=== PATIENT | female | born 1975 | race Caucasian/White ===

== ENCOUNTER 2017-01-17 16:57 | Emergency (ER) | payer OTHER, MEDICAID ==
[~2017-01-17] VITALS: Ht 167.6 cm; Wt 56.7 kg
[~2017-01-17 16:57] MED LIST: ALBU1AER4 IN; CLIN1CAP3 PO; HYDR-531 PO; NAPR1TAB87 PO; ROPI0.252 PO; SUMAPOW3 XX
[2017-01-17 17:07] VITALS: BP 141/95
[2017-01-17 17:34] LABS: Basophils # (auto) 0 uL; Basophils % (auto) 0.6 % (0.0-2.0); Eosinophils # (auto) 0.4 uL; Hemoglobin 9.9 g/dL (12.2-16.2); Lymphocytes % (auto) 17.3 % (10.0-50.0); Monocytes # (auto) 0.7 uL
[2017-01-17 17:37] LABS: Eosinophils % (auto) 5.6 % (0.0-7.0); Lymphocytes # (auto) 1.3 uL; Monocytes % (auto) 9.6 % (0.0-12.0); Neutrophils % (auto) 66.9 % (37.0-80.0); White Blood Cell 7.5 10^3/uL (4.4-10.8)
[2017-01-17 17:38] LABS: Hematocrit 30.5 % (36.0-46.0); Mean Corpuscular Hemoglobin 26.6 pg (28.0-32.0); Mean Corpuscular Hgb Conc. 32.5 g/dL (32.0-36.0); Mean Corpuscular Volume 81.9 fL (80.0-100.0); Mean Platelet Volume 6.3 fL (6.9-10.8); Platelet Count (auto) 438 10^3/uL (140-450)
[2017-01-17 18:02] LABS: Albumin 3.8 g/dL (3.4-5.0); Alkaline Phosphatase 92 U/L (45-117); Amylase 62 U/L (25-115); Anion Gap 8 (5-15); Aspartate Aminotransferase 14 U/L (15-37); BUN/Creatinine Ratio 11.3; Bilirubin, Total 0.8 mg/dL (0.2-1.0); Blood Urea Nitrogen 8 mg/dL (7-18); Carbon Dioxide 27 mmol/L (21-32); Chloride 103 mmol/L (98-107); GFR African American 117 mL/min; GFR Non-African American 96 mL/min; Glucose 79 mg/dL (74-106); Potassium 3.5 mmol/L (3.5-5.1); Sodium 138 mmol/L (136-145); Total Protein 8.5 g/dL (6.4-8.2)
== END 2017-01-17 20:10 | disposition left against medical advice (07) ==
LOC: ER 17:00
DX: R11.10 Vomiting, unspecified (principal); Z53.21 Procedure and treatment not carried out due to patient leaving prior to being seen by health care provider
CPT/HCPCS: 36415; 80053; 82150; 83690; 84484; 85025; 93005

== ENCOUNTER 2017-02-12 15:41 | Emergency (ER) | payer OTHER, MEDICAID ==
[~2017-02-12] VITALS: Ht 167.6 cm; Wt 54.4 kg
[2017-02-12 15:47] VITALS: BP 124/78
== END 2017-02-12 17:05 | disposition left against medical advice (07) ==
LOC: ER 15:51
DX: R07.9 Chest pain, unspecified (principal); Z53.21 Procedure and treatment not carried out due to patient leaving prior to being seen by health care provider
CPT/HCPCS: 93005

== ENCOUNTER → 2018-04-01 | Outpatient (CLI) | payer OTHER, MEDICAID ==
[~2018-04-01] MED LIST changes: -ROPI0.252 PO; +ROPI0.254 PO
[2018-04-01 14:25] LABS: Basophils # (auto) 0 uL; Eosinophils # (auto) 0.2 uL; Hematocrit 29.2 % (36.0-46.0); Hemoglobin 9.4 g/dL (12.2-16.2); Lymphocytes # (auto) 0.6 uL; Mean Corpuscular Hemoglobin 26.3 pg (28.0-32.0); Monocytes # (auto) 0.6 uL; Neutrophils # (auto) 3.7 uL
[2018-04-01 14:27] LABS: Basophils % (auto) 0.4 % (0.0-2.0); Eosinophils % (auto) 3.4 % (0.0-7.0); Neutrophils % (auto) 72.2 % (37.0-80.0); Platelet Count (auto) 221 10^3/uL (140-450); Red Blood Cells 3.56 10^6/uL (4.0-5.20); White Blood Cell 5.1 10^3/uL (4.4-10.8)
[2018-04-01 14:33] LABS: Red Cell Distribution Width 23.1 % (11.8-14.3)
[2018-04-01 14:43] LABS: Albumin 3.4 g/dL (3.4-5.0); Calcium 8.3 mg/dL (8.5-10.1); Magnesium 1.9 mg/dL (1.6-2.6); Potassium 3.9 mmol/L (3.5-5.1)
[2018-04-01 14:48] LABS: BUN/Creatinine Ratio 27.5; Bilirubin, Total 0.6 mg/dL (0.2-1.0); Phosphorus 3.2 mg/dL (2.5-4.90); Total Protein 6.9 g/dL (6.4-8.2)
== END | disposition home or self-care (01) ==
LOC: LAB 14:02
DX: E87.6 Hypokalemia (principal); E43 Unspecified severe protein-calorie malnutrition; R11.2 Nausea with vomiting, unspecified
CPT/HCPCS: 36415; 80053; 83735; 84100; 84478; 85025

== ENCOUNTER 2019-01-11 21:43 | Emergency (ER) | payer OTHER, MEDICAID ==
[~2019-01-11] VITALS: Ht 167.6 cm; Wt 84.8 kg
[~2019-01-11 21:43] MED LIST changes: +CLIN150C7 PO; -CLIN1CAP3 PO
[2019-01-11 22:07] VITALS: BP 120/78
[2019-01-11 23:44] LABS: Urine Bacteria FEW /hpf (None Seen); Urine Blood Negative /uL (Negative); Urine Mucus FEW (None Seen); Urine Specific Gravity 1.026 (1.001-1.035); Urine WBC 10 /hpf (0 - 5)
== END 2019-01-12 00:15 | disposition left against medical advice (07) ==
LOC: ER 21:43
DX: Z48.01 Encounter for change or removal of surgical wound dressing (principal); Z53.21 Procedure and treatment not carried out due to patient leaving prior to being seen by health care provider
CPT/HCPCS: 81001

== ENCOUNTER 2019-07-28 20:57 | Emergency (ER) | payer OTHER, MEDICAID ==
[~2019-07-28] VITALS: Ht 167.6 cm; Wt 75.3 kg
[2019-07-28 21:43] VITALS: BP 116/86
[2019-07-28] MEDS ORDERED: GASTROGRAFIN 30 ML SOL ONE (22:27)
[2019-07-28 22:33] LABS: Basophils # (auto) 0 10 ^3/uL (0-0.2); Basophils % (auto) 0.6 % (0.0-2.0); Eosinophils # (auto) 0.2 10 ^3/uL (0-0.8); Eosinophils % (auto) 4.3 % (0.0-7.0); Hematocrit 35.5 % (36.0-46.0); Hemoglobin 11.2 g/dL (12.2-16.2); Lymphocytes # (auto) 1.2 10 ^3/uL (0.4-5.4); Lymphocytes % (auto) 28.2 % (10.0-50.0); Mean Corpuscular Hgb Conc. 31.4 g/dL (32.0-36.0); Monocytes # (auto) 0.4 10 ^3/uL (0-1.3); Monocytes % (auto) 9.5 % (0.0-12.0); Neutrophils # (auto) 2.4 10 ^3/uL (1.6-8.6); Neutrophils % (auto) 57.4 % (37.0-80.0); Platelet Count (auto) 254 10^3/uL (140-450); Red Blood Cells 3.99 10^6/uL (4.0-5.20); Red Cell Distribution Width 16.7 % (11.8-14.3); White Blood Cell 4.1 10^3/uL (4.4-10.8)
[2019-07-28 22:48] LABS: INR 0.99 (0.9-1.15); Partial Thromboplastin Time 26.7 sec (23.64-32.05)
[2019-07-28 22:53] LABS: Albumin 3.2 g/dL (3.4-5.0); Calcium 8.3 mg/dL (8.5-10.1); Magnesium 2.4 mg/dL (1.6-2.6); Potassium 3.5 mmol/L (3.5-5.1)
[2019-07-28 22:59] LABS: BUN/Creatinine Ratio 19.7; Bilirubin, Total 0.6 mg/dL (0.2-1.0); Total Protein 7.1 g/dL (6.4-8.2)
== END 2019-07-28 23:35 | disposition home or self-care (01) ==
LOC: ER 20:57
DX: R10.9 Unspecified abdominal pain (principal)
CPT/HCPCS: 36415; 74018; 74176; 80053; 82150; 83605; 83690; 83735; 85025; 85610; 85730; 87040; 99285; Q9963